=== PATIENT | female | born 1985 | race Hispanic/Latino ===

== ENCOUNTER 2016-08-30 09:28 | Emergency (ER) | payer OTHER ==
[~2016-08-30] VITALS: Ht 149.9 cm; Wt 97.7 kg
[2016-08-30 09:35] VITALS: BP 122/89; PULSE 80; RESP 18; O2SAT 97
--- NOTE | 2016-08-30 10:03 | ED.REPORT ---
HPI-Chest Pain Under 40 Date of Service Aug 30, 2016 ED Provider: Carrie Rodriguez MD Patient is a 30-year-old female who reports to the ER due to left chest and shoulder pain onset last night. She woke up from sleep due to a "pounding sensation" in her left chest that lasted for several minutes followed by chest pain that remained for 3 hours. Every time she yawned, patient stated that it felt like her heart was starting to beat faster. Patient does not currently report any pain but describes an "odd sensation" in her left shoulder and chest. She reports no other potential reasons for the pain and has never experienced anything like this before. Patient denies vomiting, diarrhea, nausea, and cough. Nursing Notes Stated Complaint: CHEST PAIN/LEFT ARM PAIN Chief Complaint: Chest Pain Nursing Notes Reviewed: Yes Allergies: Coded Allergies: No Known Allergies (Verified , 12/16/03) General Time Seen by MD: 09:58 Chief Complaint Chest pain Hx Obtained From: Patient Arrived By: Walk-in Sudden in Onset?: Yes Onset Occurred: 5 - 8 hours ago Symptom Duration: Since onset Location: : Chest left: Shoulder left Radiation: : Does not radiate Severity: Current: No pain currently Severity: Maximum: Mild Recent Healthcare: No recent doctor visit, No recent hospitalization Similar Sx Previous: No Past Medical History Past Medical History denies Past Surgical History denies Smoking History Never Smoker Social History Alcohol Use: Denies alcohol use Drug Use: Denies drug use Ambulatory Status Independent Review of Systems Respiratory: Denies: Non-productive cough Cardiovascular: Reports: Chest pain GI: Denies: Diarrhea, Nausea, Vomiting Musculoskeletal: Reports: Joint pain (left) Complete sys rev & neg: except as marked. Physical Exam Initial Vital Signs Vital Signs (First) Date Time Temp Pulse Resp B/P Pulse Ox O2 Delivery O2 Flow Rate FiO2 08/30/16 09:35 36.6 80 18 122/89 97 Room Air Initial VS: Reviewed Head / Eyes: Atraumatic, Normocephalic, PERRL ENT: Mucous membranes moist, Conjunctiva normal, No scleral icterus Neck: Supple, Non-tender, Full range of motion Abdomen / GI: Soft, Non-tender, No guarding, No rebound, No distention Skin: Warm, Dry, No cyanosis Neurologic: Alert, Oriented, Nonfocal Psychiatric: Mood/affect normal, Behavior normal, Normal thought content General/Constitutional: Awake, Alert, No acute distress, Well appearing, Well developed, Cooperative, Not toxic appearing Respiratory / Chest: Atraumatic, Breath sounds NL, Breath sounds = bilat, No respiratory distress, No rales, No rhonchi, No wheezing Cardiovascular: Heart rate NL, Regular rhythm, Heart sounds NL, No gallop, No murmurs, No rubs Interpretation & Diagnostics Lab Results Interpretation Result Diagram: 08/30/16 1020 08/30/16 1020 Test 08/30/16 10:20 White Blood Count 7.6th/mm3 (3.8-10.1) Red Blood Count 4.77mil/mm3 (3.90-5.20) Hemoglobin 14.3g/dL (12.0-15.6) Hematocrit 42.2% (35.0-46.0) Mean Corpuscular Volume 88.5fL (81-100) Mean Corpuscular Hemoglobin 30.0pg (27.0-35.0) Mean Corpuscular Hemoglobin Concent 33.9% (32.0-37.0) Red Cell Distribution Width 12.2% (12.3-15.4) Platelet Count 254bil/L (150-400) Neutrophils (%) (Auto) 66.5% (40-74) Lymphocytes (%) (Auto) 27.0% (14-46) Monocytes (%) (Auto) 5.4% (4-12) Eosinophils (%) (Auto) 0.5% (0-5) Basophils (%) (Auto) 0.3% (0-3) D-Dimer < 0.5mg/L (<0.50) Sodium Level 136mEq/L (134-144) Potassium Level 3.1mEq/L (3.5-5.2) Chloride Level 96mEq/L (97-108) Carbon Dioxide Level 26mmol/L (18-29) Blood Urea Nitrogen 10mg/dL (6-20) Creatinine 0.58mg/dL (0.57-1.00) Estimat Glomerular Filtration Rate 174mL/min (>59) Glucose Level 104mg/dL (60-99) Calcium Level 9.0mg/dL (8.5-10.1) Magnesium Level 1.9mg/dL (1.6-2.6) Total Bilirubin 0.6mg/dL (0.0-1.2) Aspartate Amino Transf (AST/SGOT) 25U/L (0-50) Alanine Aminotransferase (ALT/SGPT) 36U/L (0-32) Alkaline Phosphatase 82U/L (25-150) Troponin T < 0.010ug/L (0.0-0.011) Total Protein 7.9g/dL (6.4-8.4) Albumin 4.3g/dL (3.4-5.0) Hold García Top Tube Received (Received) ECG Interpretation Time: 09:48 Interpreted by: ED physician Normal ECG Interpretation: Normal rate, Normal sinus rhythm, No acute ischemic changes, Normal QRS, Normal axis, Normal intervals, No change from prior ECGs, Adequate tracing X-Ray Chest Interpretation Chest Xray Interpretation: IMPRESSION: No acute cardiopulmonary disease process. Dictated by: Audra Quiroga MD, PhD on 08/30/2016 at 11:12 Approved by: Audra Quiroga MD, PhD on 08/30/2016 at 11:12 View: Portable Interpretation / Wet Read by: Interpret - Radiologist Re-Eval/Medical Decision Re-Evaluation/Progress : Time of Eval: 12:56 Re-Evaluation/Progress Note: Pt rechecked. Informed pt of diagnosis and plan for treatment. Pt understands and agrees with plan. F/U and RTER warnings given. All questions addressed. Counseled Regarding: Diagnosis, Lab results, Need for follow-up, When/why to return to ED Discharge & Departure Primary Impression: Cervical radiculopathy Additional Impression: Heart palpitations Ruled Out: Pneumonia, Pulmonary embolism, Acute coronary syndrome Disposition: Home Discharge Condition All VS Reviewed: Yes Condition: Stable Additional Instructions: Thank you for coming to the Emergency Department today. After reviewing your symptoms and labs, you have no life threatening illness. Your diagnosis is left shoulder ridicual pain. Take ibuprofen as needed to alleviate pain. Please return to the Emergency Department for any new or worsening symptoms. Referrals: Ronnell Vasquez DO (PCP) Scribe Attestation Portion of this note were transcribed by Jaylan Nagy. I, Dr. Rodriguez, personally performed the history, physical exam, and medical decision-making: I reviewed and confirmed the accuracy for the information in the transcribed note. Signed by: jyotsna Wyman, 08/30/16 1030 copies to: Ronnell Vasquez Shawna L MD Aug 30, 2016 10:03 JAYLAN NAGY Aug 30, 2016 10:10
[2016-08-30 10:28] LABS: BASOPHILS % (AUTO) 0.3 % (0-3); EOSINOPHILS % (AUTO) 0.5 % (0-5); MONOCYTES % (AUTO) 5.4 % (4-12); Mean Corpuscular Volume 88.5 fL (81-100); NEUTROPHILS % (AUTO) 66.5 % (40-74); Platelet Count 254 bil/L (150-400)
[2016-08-30 11:04] LABS: Magnesium 1.9 mg/dL (1.6-2.6)
[2016-08-30 11:08] LABS: TROPONIN T < 0.010 ug/L (0.0-0.011)
--- NOTE | 2016-08-30 11:14 | DRSVH ---
PROCEDURE: X-RAY CHEST ONE VIEW, PORTABLE ([id number]) INDICATIONS: chest pain TECHNIQUE: One view of the chest was acquired. COMPARISON: None. FINDINGS: Surgical changes and devices: None. Lungs and pleura: No pleural effusions or pneumothorax. Lungs are clear. Mediastinum: Mediastinal contours appear normal. Heart size is normal. Bones and chest wall: No suspicious bony lesions. Overlying soft tissues appear unremarkable. IMPRESSION: No acute cardiopulmonary disease process. Dictated by: Audra Quiroga MD, PhD on 08/30/2016 at 11:12 Approved by: Audra Quiroga MD, PhD on 08/30/2016 at 11:12
[2016-08-30 12:48] VITALS: BP 126/72; PULSE 66; RESP 16; O2SAT 99
[2016-08-30] MEDS ORDERED: Potassium Chloride 20 mEq SR Tablet PO ONE (12:50)
[2016-08-30 13:38] VITALS: BP 106/48; PULSE 70; RESP 18; O2SAT 97
== END 2016-08-30 13:39 | disposition home or self-care (01) ==
LOC: SED 09:28
DX: M54.12 Radiculopathy, cervical region (principal); R00.2 Palpitations; R07.9 Chest pain, unspecified